=== PATIENT | female | born 1995 | race Caucasian/White ===

== ENCOUNTER 2017-05-14 01:11 | Emergency (ER) | payer OTHER ==
[~2017-05-14] VITALS: Ht 167.6 cm; Wt 77.1 kg
[2017-05-14] MEDS ORDERED: AZITHROMYCIN 250 MG TAB (ZITHROMAX) PO STA (01:58)
[2017-05-14] MEDS ORDERED: cefTRIAXone 1 GM (ROCEPHIN) VIAL IM ONE (02:00)
[2017-05-14] MEDS ORDERED: LIDOCAINE 1% INJ 20 ML (XYLOCAINE) VIAL INJ ONE (02:00)
[2017-05-14 02:05] LABS: BILIRUBIN,URINE NEGATIVE (NEGATIVE); CLARITY,URINE SLIGHTLY CLOUDY; COLOR,URINE YELLOW; GLUCOSE, URINE (UA) NEGATIVE (NEGATIVE); KETONES,URINE 1+ (NEGATIVE); LEUKOCYTE ESTERASE ,URINE 3+ (NEGATIVE); NITRITE,URINE NEGATIVE (NEGATIVE); PH,URINE 6.5 (5-9); PROTEIN,URINE 1+ (NEGATIVE); UROBILINOGEN,URINE NORMAL (NORMAL)
[2017-05-14] MEDS ORDERED: LIDOCAINE 1% INJ 50 ML (XYLOCAINE) VIAL ONE (02:05)
[2017-05-14] MEDS ORDERED: FLUC200T PO (02:05)
[2017-05-14] MEDS ORDERED: CLOT45CR22 VG (02:05)
[2017-05-14] MEDS ORDERED: METR500T PO (02:05)
--- NOTE | 2017-05-14 02:05 | ED GU-Female ---
General Chief Complaint: -Female Stated Complaint: VAG ITCHING Nursing Triage Note: patient reports vaginal itching and white discharge. patient reports being evaluated by [facility]. Patient reports they gave her 2 tablets to take on tuesday the and 1 tablet to take on the . Patient is not sure of the medication name and states that her symptoms have not improved. Patient reports that she is sexually active Nursing Sepsis Screen: No Definite Risk Source: patient History of Present Illness Date Seen by Provider: May 14, 2017 Time Seen by Provider: 01:30 Initial Comments C/O VAGINAL ITCHING X 5 DAYS NOW EXTERNAL GENITAL AREA IS BECOMING VERY IRRITATED AND PAINFUL ALSO HAVING VAGINAL DISCHARGE NO ABDOMINAL PAIN NO FEVER NO NAUSEA/VOMITING C/O BURNING ON URINATION--EXTERNALLY LMP 04/25/17. NORMAL. TOD IN PLACE X 3 YEARS WAS SEEN AT [facility] ON Tuesday05/11/17 FOR THIS PROBLEM. NO EXAM OR TESTS WERE DONE. WAS PRESCRIBED UNKNOWN MEDICATION, CONSISTING OF 2 PILLS, AND PT TOOK ONE ON TUESDAY AND ONE TODAY, WITHOUT RELIEF. [employer] [facility] All[facility] and Home Medications Allergies Coded Allergies: No Known Drug Allergies (Unverified , 05/14/17) Home Medications Clotrimazole 45 Gm Cream.appl, 45 GM VG UD Prescribed by: LINDA MONTESINOS on 05/14/17204 Fluconazole 200 Mg Tablet, 200 MG PO DAILY Prescribed by: LINDA MONTESINOS on 05/14/17204 Metronidazole 500 Mg Tablet, 500 MG PO QID Prescribed by: LINDA MONTESINOS on 05/14/17204 Patient Home Medication List Home Medication List Reviewed: Yes Constitutional: no symptoms reported Respiratory: no symptoms reported Cardiovascular: no symptoms reported Gastrointestinal: no symptoms reported Genitourinary: see HPI, burning, discharge, dysuria : No (NEXPLANON X 3 YEARS) LMP: Apr 25, 2017 Musculoskeletal: no symptoms reported Skin: no symptoms reported Psychiatric/Neurological: No Symptoms Reported Past Rdywjrd-Phtsjg-[id number] Hx Patient Social History Alcohol Use: Denies Use Recreational Drug Use: No Smoking Status: Never a Smoker Recent Foreign Travel: No Contact w/Someone Who Travel: No Recent Infectious Disease Expo: No Recent Hopitalizations: No Physical Abuse: No Sexual Abuse: No Surgeries History of Surgeries: No Respiratory History of Respiratory Disorde: No Cardiovascular History of Cardiac Disorders: No Neurological History of Neurological Disord: No Genitourinary History of Genitourinary Disor: No Gastrointestinal History of Gastrointestinal Di: No Musculoskeletal History of Musculoskeletal Dis: No Endocrine History of Endocrine Disorders: No HEENT History of HEENT Disorders: No Cancer History of Cancer: No Psychosocial History of Psychiatric Problem: No Suicide Risk Score: 0 Integumentary History of Skin or Integumenta: No Blood Transfusions History of Blood Disorders: No Physical Exam Vital Signs Vital Signs - First Documented 05/14/17 01:19 Temp 98.2 Pulse 65 Resp 18 B/P (MAP) 141/82 (101) Pulse Ox 100 Capillary Refill : Less Than 3 Seconds General Appearance: WD/WN, no apparent distress Cardiovascular: regular rate, rhythm, no murmur Respiratory: normal breath sounds, no respiratory distress Gastrointestinal: normal bowel sounds, non tender, soft Pelvic: normal adnexa, no cerv. motion tender, no masses, discharge (MODERATE AMOUNT OF LIGHT YELLOW DISCHARGE, WITH PAIN EXTERNALLY ON EXAM. ), No lesions, No mass, No tender w/ cervical motion, No tender adnexa, No tender uterus, No vaginal bleeding, other (MILD ERYTHEMA TO LABIA MINORA. NO ULCERATIONS, WOUNDS, SORES, ETC. MUCH TENDERNESS TO EXTERNAL GENITAL AREA/LABIA. ) Back: normal inspection, no CVA tenderness Extremities: normal inspection, normal capillary refill Neurologic/Psychiatric: roller turner II-XII nml as tested, no motor/sensory deficits, alert, normal mood/affect, oriented x 3 Skin: normal color, warm/dry Progress/Results/Core Measures Suspected Sepsis Recent Fever Within 48 Hours: No Infection Criteria Present: None New/Unexplained Altered Menta: No Sepsis Screen: No Definite Risk Sepsis Diagnosis: SIRS Temperature:98.2 Pulse: 65 Respiratory Rate: 18 Blood Pressure 141 /82 Mean: 101 Results/Orders Lab Results Laboratory Tests Test 05/14/17 01:50 05/14/17 01:55 05/14/17 02:00 Range/Units Urine Color YELLOW Urine Clarity SLIGHTLY CLOUDY Urine pH 6.5 5-9 Urine Specific [place] 1.020 1.016-1.022 Urine Protein 1+ H NEGATIVE Urine Glucose (UA) NEGATIVE NEGATIVE Urine Ketones 1+ H NEGATIVE Urine Nitrite NEGATIVE NEGATIVE Urine Bilirubin NEGATIVE NEGATIVE Urine Urobilinogen NORMAL NORMAL MG/DL Urine Leukocyte Esterase 3+ H NEGATIVE Urine RBC (Auto) 3+ H NEGATIVE Urine RBC 0-2 /HPF Urine WBC 50-100 H /HPF Urine Squamous Epithelial Cells 10-25 H /HPF Urine Crystals NONE /LPF Urine Bacteria MODERATE H /HPF Urine Casts NONE /LPF Urine Mucus NEGATIVE /LPF Urine Culture Indicated YES Urine Test NEGATIVE NEGATIVE My Orders Orders - LINDA MONTESINOS DO Urine Bedside (05/14/17 01:38) Ua Culture If Indicated (05/14/17 01:58) Neisseria Gonorrhea Dna (05/14/17 01:58) Chlam Dna Probe (05/14/17 01:58) Genital Culture (05/14/17 01:58) Wet Prep (05/14/17 01:58) Cassidy Prep (05/14/17 01:58) Ceftriaxone Injection (Rocephin Injectio (05/14/17 02:00) Azithromycin Tablet (Zithromax Tablet) (05/14/17 01:58) Lidocaine 1% Injection (Xylocaine 1% Inj (05/14/17 02:00) Hcg,Qualitative Urine (05/14/17 02:00) Lidocaine 1% (Xylocaine 1%) (05/14/17 02:05) Urine Culture (05/14/17 01:50) Medications Given in ED Current Medications Medications Dose Ordered Sig/Jeremy Route Start Time Stop Time Status Last Admin Dose Admin Ceftriaxone Sodium 1,000 mg ONCE ONCE IM 05/14/17 02:00 05/14/17 02:01 DC 05/14/17 02:17 1,000 MG Lidocaine HCl 50 ml STK-MED ONCE .ROUTE 05/14/17 02:05 05/14/17 02:09 DC 05/14/17 02:18 2.1 ML Vital Signs/I&O Vital Sign - Last 12Hours 05/14/17 05/14/17 01:19 02:29 Temp 98.2 Pulse 65 65 Resp 18 18 B/P (MAP) 141/82 (101) 141/82 Pulse Ox 100 100 Capillary Refill : Less Than 3 Seconds Blood Pressure Mean: 101 Progress Note : Progress Note WET PREP--MODERATE WBC'S, FEW TRICHOMONAS, RARE CLUE CELLS, NO YEAST Departure Impression Impression: Primary Impression: Vaginitis Additional Impressions: Trichomonas vaginitis Urinary tract infection Disposition: 01 HOME, SELF-CARE Condition: Stable Departure-Patient Inst. Referrals: [facility] (PCP/Family) Primary Care Physician Patient Instructions: Screening for Sexually Transmitted Infections, Trichomoniasis (DC), Vaginitis, Urinary Tract Infection, Adult (DC), Sexually- Transmitted Diseases (DC) Add. Discharge Instructions: TYLENOL AND MOTRIN NEEDED FOR PAIN NOTHING IN VAGINA--NO TAMPONS, DOUCHING OR INTERCOURSE--UNTIL YOU ARE RECHECKED AND CLEARED BY FOLLOW UP WITH [facility] IN 4-5 DAYS FOR RECHECK All discharge instructions reviewed with patient and/or family. Voiced understanding. Scripts Clotrimazole (Clotrimazole-7) 45 Gm Cream.appl 45 GM VG UD for 7 Days, #1 APPLIC Prov: LINDA MONTESINOS DO 05/14/17 Fluconazole (Diflucan) 200 Mg Tablet 200 MG PO DAILY for FOR YEAST INFECTION, #7 TAB Prov: LINDA MONTESINOS DO 05/14/17 Metronidazole (Flagyl) 500 Mg Tablet 500 MG PO QID for FOR INFECTION, #40 TAB Prov: LINDA MONTESINOS DO 05/14/17 LINDA MONTESINOS DO May 14, 2017 02:05
[2017-05-14 02:13] LABS: BACTERIA,URINE MODERATE /HPF; RBC,URINE 0-2 /HPF; WBC,URINE 50-100 /HPF
[2017-05-14 02:29] VITALS: BP 141/82
== END 2017-05-14 02:34 | disposition home or self-care (01) ==
LOC: ER 01:15
DX: A59.01 Trichomonal vulvovaginitis (principal)
CPT/HCPCS: 36415; 81000; 84703; 87070; 87088; 87210; 87491; 87591; 96372; 99284